=== PATIENT | female | born 1965 | race Caucasian/White ===

== ENCOUNTER → 2020-04-21 | Outpatient (CLI) | payer OTHER ==
[~2020-04-21] VITALS: Ht 170.2 cm; Wt 56.7 kg
== END | disposition home or self-care (01) ==
LOC: ECT 13:08
DX: F31.5 Bipolar disorder, current episode depressed, severe, with psychotic features (principal); I12.9 Hypertensive chronic kidney disease with stage 1 through stage 4 chronic kidney disease, or unspecified chronic kidney disease; N18.30 Chronic kidney disease, stage 3 unspecified; Z79.899 Other long term (current) drug therapy; E03.9 Hypothyroidism, unspecified

== ENCOUNTER 2020-04-25 07:35 | Outpatient (RCR) | payer OTHER ==
[~2020-04-25] VITALS: Ht 170.2 cm; Wt 56.7 kg
[2020-04-25] VITALS (8 sets, daily range): BP systolic 114–129; BP diastolic 58–82
[2020-04-25] MEDS ORDERED: NS 500ML ONE (07:36)
[2020-04-25] MEDS ORDERED: Succinylcholine 20mg/ml 10ml vial ONE (07:36)
[2020-04-25] MEDS ORDERED: Methohexital Sodium Syr 100mg/10ml IVP ONE (07:36)
[2020-04-28] VITALS (7 sets, daily range): BP systolic 103–114; BP diastolic 53–83
[2020-04-28] MEDS ORDERED: Methohexital Sodium Syr 100mg/10ml IVP ONE (06:00)
[2020-04-28] MEDS ORDERED: NS 500ML ONE (06:00)
[2020-04-28] MEDS ORDERED: Succinylcholine 20mg/ml 10ml vial ONE (06:00)
[2020-04-30] VITALS (7 sets, daily range): BP systolic 101–120; BP diastolic 40–82
[2020-04-30] MEDS ORDERED: Methohexital Sodium Syr 100mg/10ml IVP ONE (07:00)
[2020-04-30] MEDS ORDERED: Succinylcholine 20mg/ml 10ml vial ONE (07:00)
[2020-04-30] MEDS ORDERED: NS 500ML ONE (07:00)
[2020-04-30] MEDS ORDERED: Atropine Sulfate 0.4mg/ml inj IVP PRN (14:30)
[2020-05-02] VITALS (7 sets, daily range): BP systolic 97–106; BP diastolic 57–75
[2020-05-02] MEDS ORDERED: NS 500ML ONE (06:00)
[2020-05-02] MEDS ORDERED: Succinylcholine 20mg/ml 10ml vial ONE (06:00)
[2020-05-02] MEDS ORDERED: Methohexital Sodium Syr 100mg/10ml IVP ONE (06:00)
== END 2020-05-03 | disposition home or self-care (01) ==
LOC: ECT 07:35
DX: F31.5 Bipolar disorder, current episode depressed, severe, with psychotic features (principal); I13.10 Hypertensive heart and chronic kidney disease without heart failure, with stage 1 through stage 4 chronic kidney disease, or unspecified chronic kidney disease; N18.30 Chronic kidney disease, stage 3 unspecified; E03.9 Hypothyroidism, unspecified
CPT/HCPCS: 90870; J0330; J7040

== ENCOUNTER 2020-05-05 06:15 | Outpatient (RCR) | payer OTHER ==
[2020-05-05] VITALS (7 sets, daily range): BP systolic 102–120; BP diastolic 63–77
[~2020-05-05] VITALS: Ht 170.2 cm; Wt 56.7 kg
[2020-05-05] MEDS ORDERED: Methohexita Syr 100mg/10ml IVP ONE ×2 (06:16)
[2020-05-05] MEDS ORDERED: NS 500ML ONE ×2 (06:16)
[2020-05-05] MEDS ORDERED: Succinylcholine 20mg/ml 10ml vial ONE ×2 (06:16)
[2020-05-07] VITALS (7 sets, daily range): BP systolic 105–113; BP diastolic 64–76
[2020-05-07] MEDS ORDERED: Methohexita Syr 100mg/10ml IVP ONE (06:00)
[2020-05-07] MEDS ORDERED: Succinylcholine 20mg/ml 10ml vial ONE (06:00)
[2020-05-07] MEDS ORDERED: NS 500ML ONE (06:00)
[2020-05-09] VITALS (7 sets, daily range): BP systolic 111–119; BP diastolic 63–79
[2020-05-09] MEDS ORDERED: Methohexita Syr 100mg/10ml IVP ONE (09:00)
[2020-05-09] MEDS ORDERED: NS 500ML ONE (09:00)
[2020-05-09] MEDS ORDERED: Succinylcholine 20mg/ml 10ml vial ONE (09:00)
[2020-05-12] VITALS (7 sets, daily range): BP systolic 118–131; BP diastolic 72–87
[2020-05-12] MEDS ORDERED: Succinylcholine 20mg/ml 10ml vial ONE (06:00)
[2020-05-12] MEDS ORDERED: NS 500ML ONE (06:00)
[2020-05-12] MEDS ORDERED: Methohexita Syr 100mg/10ml IVP ONE (06:00)
[2020-05-16] VITALS (7 sets, daily range): BP systolic 108–123; BP diastolic 68–90
[2020-05-23] VITALS (7 sets, daily range): BP systolic 105–116; BP diastolic 60–81
[2020-05-23] MEDS ORDERED: NS 500ML ONE (06:00)
[2020-05-23] MEDS ORDERED: Methohexita Syr 100mg/10ml IVP ONE (06:00)
[2020-05-23] MEDS ORDERED: Succinylcholine 20mg/ml 10ml vial ONE (06:00)
== END 2020-06-02 | disposition home or self-care (01) ==
LOC: ECT 06:15
DX: F31.5 Bipolar disorder, current episode depressed, severe, with psychotic features (principal)
CPT/HCPCS: 90870; J0330; J7040

== ENCOUNTER 2020-06-09 05:48 | Outpatient (RCR) | payer OTHER ==
[2020-06-09] VITALS (7 sets, daily range): BP systolic 108–129; BP diastolic 72–87
[~2020-06-09] VITALS: Ht 30.5 cm; Wt 0.5 kg
[2020-06-09] MEDS ORDERED: NS 500ML ONE (05:49)
[2020-06-09] MEDS ORDERED: Succinylcholine 20mg/ml 10ml vial ONE (05:49)
[2020-06-09] MEDS ORDERED: Methohexita Syr 100mg/10ml IVP ONE (05:49)
--- NOTE | 2020-06-09 17:37 | NUR ---
Pt. transferred to ER after Code Blue, See code sheet
== END 2020-07-03 | disposition home or self-care (01) ==
LOC: ECT 05:48
DX: F31.5 Bipolar disorder, current episode depressed, severe, with psychotic features (principal)
CPT/HCPCS: 90870; J0330; J7040

== ENCOUNTER 2020-06-09 11:38 | Emergency (ER) | payer OTHER ==
[~2020-06-09] VITALS: Ht 157.5 cm; Wt 52.2 kg
[2020-06-09 12:00] VITALS: BP 116/81
--- NOTE | 2020-06-09 12:00 | NUR ---
ED Nurse Note: Pt brought in by [facility] staff from ECT for becoming unresponsive after having seizure. Respirations even and unlabored on room air. Vitals stable as documented. A+Ox4, speaking in complete sentences. Pt SR on the monitor. Seizure precautions in place
[2020-06-09 12:30] LABS: BASOPHILS % (AUTO) 0.6 % (0.0-2.0); EOSINOPHILS % (AUTO) 0.1 % (0.0-3.0); HEMATOCRIT 38.7 % (37.0-47.0); HEMOGLOBIN 13.6 G/DL (12.0-16.0); LYMPHOCYTES % (AUTO) 14.2 % (20.0-45.0); MEAN CORPUSCULAR VOLUME 97 FL (80-99); MONOCYTES % (AUTO) 4.3 % (1.0-10.0); NEUTROPHILS % (AUTO) 80.8 % (45.0-75.0); PLATELET COUNT 260 K/UL (150-450); RED BLOOD COUNT 3.98 M/UL (4.20-5.40); RED CELL DISTRIBUTION WIDTH 12.1 % (11.6-14.8); WHITE BLOOD COUNT 9.1 K/UL (4.8-10.8)
--- NOTE | 2020-06-09 12:56 | Emergency Room Report ---
History of Present Illness General Chief Complaint: Seizure Source: Patient Present Illness HPI Disclaimer: Please note that this report is being documented using DRAGON technology. This can lead to erroneous entry secondary to incorrect interpretation by the dictating instrument. HPI: 54-year-old female presents for evaluation after unresponsive episode. 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 She underwent ECT today and was in the recovery window when she had a 2 minute generalized tonic-clonic seizure. Aborted spontaneously. She was noticed to have bladder incontinence. Immediately following termination of the seizure it is reported that the patient had asystole on monitor and no palpable pulse was found. CPR was initiated. No medications were given. At first pulse check the patient had bounding pulses. She slowly awoke though was initially confused and does not remember those events now. I was called to recovery room as a CODE BLUE. Patient was seemingly postictal but had a bounding pulse and stable vital signs. Patient is now awake alert in the emergency department. She reports some tenderness over the chest where compressions occurred but otherwise denies chest pain, palpitations, lightheadedness. Reports mild headache. Denies recent changes in her health such as fever or chills. No prior history of seizures. She was taking Tegretol but that was not for seizures according to patient. Denies any alcohol or drug use. No other complaints from patient at this time. PMH: Depression, catatonia PSH: Reviewed Allergies: NSAIDs Social Hx: Denies alcohol or drug use Allergies: Coded Allergies: NSAIDS (NON-STEROIDAL ANTI-INFLAMMA (Verified Allergy, Unknown, 04/24/20) CKD COVID-19 Screening Contact w/high risk pt: No Experienced COVID-19 symptoms?: No COVID-19 Testing performed LAUNDRY TECHNICIAN: No Review of Systems All Other Systems: negative except mentioned in HPI Physical Exam Vital Signs Date Time Temp Pulse Resp B/P (MAP) Pulse Ox O2 Delivery O2 Flow Rate FiO2 06/09/20 11:56 98.1 90 16 108/75 (86) 100 Room Air General: Awake and alert, no acute distress HEENT: NC/AT. EOMI. Cardiovascular: RRR. S1 and S2 normal. No murmur appreciated Resp: Normal work of breathing. No cough, wheezing or crackles appreciated Abdomen: Abdomen is soft, nondistended. Nontender Skin: Intact. No abrasions, laceration or rash over the exposed skin MSK: Normal tone and bulk. Moving all extremities. No obvious deformity. Neuro: Awake and alert. Mentating appropriately. Procedures Critical Care Time Critical Care Time Total critical care time: Approximately 31 minutes Due to a high probability of clinically significant, life threatening deterioration, the patient required the highest level of preparedness to intervene emergently and I personally spent this critical care time directly and personally managing the patient. This critical care time included obtaining a history, examining the patient, pulse oximetry, ordering and reviewing studies, ordering treatments, evaluating response to treatment and updating management plan as needed, frequent reassessment and discussion with other providers as well as arranging for ultimate disposition. This critical to care time was pe rformed to assess and manage the high probability of life-threatening deterioration that could result in multiorgan failure. This critical care time is separate from the separately billable procedures and treating other patients. Medical Decision Making Diagnostic Impression: Primary Impression: Elevated lactic acid level Additional Impressions: Hypomagnesemia Unresponsive episode Seizure ER Course Is a 54-year-old female presenting for evaluation after an unresponsive episode and presumed seizure. I was called for a CODE BLUE at bedside but the patient was found with a palpable pulse after receiving 1 round of CPR. No medications were given. Differential includes was not limited to seizure, postictal state, cardiac arrest, ACS, arrhythmia, medication side effect, electrolyte abnormality among others. Her EKG on arrival shows normal sinus rhythm without evidence of ischemia. Chest x-ray unremarkable. Troponin is negative. Lactic acid slightly elevated consistent with seizure. Magnesium low and was repleted. Patient receiving IV fluids. Labs show decrease in renal function elevated lactate. Had plan for admission however the patient declined. She states she feels well does not want to stay in the hospital as she [place] far away. She is electing to leave AGAINST MEDICAL ADVICE. She understands the risks of leaving after a possible cardiac arrest however states she will follow-up with her PMD at [facility] soon as possible for reevaluation. Her psychiatrist will prescribe seizure medications. She will return to the emergency department any seizure like activity or any other changes in her health or should she change her mind regarding admission. Laboratory Tests Test 06/09/20 11:45 06/09/20 13:20 06/09/20 14:20 White Blood Count 9.1 K/UL (4.8-10.8) Red Blood Count 3.98 M/UL (4.20-5.40) L Hemoglobin 13.6 G/DL (12.0-16.0) Hematocrit 38.7 % (37.0-47.0) Mean Corpuscular Volume 97 FL (80-99) Mean Corpuscular Hemoglobin 34.3 PG (27.0-31.0) H Mean Corpuscular Hemoglobin Concent 35.2 G/DL (32.0-36.0) Red Cell Distribution Width 12.1 % (11.6-14.8) Platelet Count 260 K/UL (150-450) Mean Platelet Volume 5.4 FL (6.5-10.1) L Neutrophils (%) (Auto) 80.8 % (45.0-75.0) H Lymphocytes (%) (Auto) 14.2 % (20.0-45.0) L Monocytes (%) (Auto) 4.3 % (1.0-10.0) Eosinophils (%) (Auto) 0.1 % (0.0-3.0) Basophils (%) (Auto) 0.6 % (0.0-2.0) Prothrombin Time 11.5 SEC (9.30-11.50) Prothrombin Time INR 1.0 (0.9-1.1) Activated Partial Thromboplast Time 26 SEC (23-33) Sodium Level 144 MMOL/L (136-145) Potassium Level 4.3 MMOL/L (3.5-5.1) Chloride Level 110 MMOL/L (98-107) H Carbon Dioxide Level 24 MMOL/L (21-32) Anion Gap 10 mmol/L (5-15) Blood Urea Nitrogen 19 mg/dL (7-18) H Creatinine 1.7 MG/DL (0.55-1.30) H Estimated Glomerular Filtration Rate 31.5 mL/min (>60) Glucose Level 151 MG/DL (74-106) H Lactic Acid Level 2.40 mmol/L (0.4-2.0) H Pending Calcium Level 9.2 MG/DL (8.5-10.1) Phosphorus Level 5.5 MG/DL (2.5-4.9) H Magnesium Level 1.6 MG/DL (1.8-2.4) L Total Bilirubin 0.4 MG/DL (0.2-1.0) Aspartate Amino Transferase (AST) 42 U/L (15-37) H Alanine Aminotransferase (ALT) 49 U/L (12-78) Alkaline Phosphatase 102 U/L (46-116) Total Creatine Kinase 43 U/L (26-308) Creatine Kinase MB 1.7 NG/ML (0.0-3.6) Creatine Kinase MB Relative Index 3.9 Troponin I 0.021 ng/mL (0.000-0.056) Pro-B-Type Natriuretic Peptide 212 pg/mL (0-125) H Total Protein 7.2 G/DL (6.4-8.2) Albumin 3.8 G/DL (3.4-5.0) Globulin 3.4 g/dL Albumin/Globulin Ratio 1.1 (1.0-2.7) Urine Color Pale yellow Urine Appearance Clear Urine pH 7 (4.5-8.0) Urine Specific [place] 1.005 (1.005-1.035) Urine Protein Negative (NEGATIVE) Urine Glucose (UA) Negative (NEGATIVE) Urine Ketones Negative (NEGATIVE) Urine Blood Negative (NEGATIVE) Urine Nitrite Negative (NEGATIVE) Urine Bilirubin Negative (NEGATIVE) Urine Urobilinogen Normal MG/DL (0.0-1.0) Urine Leukocyte Esterase Negative (NEGATIVE) EKG Diagnostic Results Troponin ordered: Yes When was troponin ordered?: Jun 09, 2020 EKG Time: 12:02 Rate: normal Rhythm: NSR ST Segments: no acute changes Other Impression Sinus rhythm, normal axis, normal intervals, no ST segment changes. Rhythm Strip Diag. Results Rhythm Strip Time: 12:02 EP Interpretation: yes Rate: 80s Rhythm: NSR, no PVC's, no ectopy Chest X-Ray Diagnostic Results Chest X-Ray Diagnostic Results : Chest X-Ray Ordered: Yes # of Views/Limited/Complete: 1 View Indication: Chest Pain EP Interpretation: Yes Interpretation: no consolidation, no effusion, no pneumothorax, no acute cardiopulmonary disease Impression: No acute disease Electronically Signed by: Electronically signed by Dr. Matthew Rivera MD Last Vital Signs Date Time Temp Pulse Resp B/P (MAP) Pulse Ox O2 Delivery O2 Flow Rate FiO2 06/09/20 11:56 98.1 90 16 108/75 (86) 100 Room Air Disposition: AGAINST MEDICAL ADVICE Condition: Stable Referrals: [facility] (PCP) Matthew Rivera MD Jun 09, 2020 12:55
[2020-06-09 12:59] LABS: CALCIUM 9.2 MG/DL (8.5-10.1); CREATININE 1.7 MG/DL (0.55-1.30); POTASSIUM 4.3 MMOL/L (3.5-5.1)
[2020-06-09 13:00] LABS: PHOSPHORUS 5.5 MG/DL (2.5-4.9)
--- NOTE | 2020-06-09 13:12 | Diagnostic Imaging Report ---
Indication: Chest pain Technique: XRAY Chest 1v Comparison: None Findings: Heart size and mediastinal contours are within normal limits for AP technique. There is no focal airspace consolidation, pneumothorax or pleural effusion. Moderate to severe scoliosis of the lower thoracic/upper lumbar spine is noted. Osseous structures demonstrate no acute abnormality. Impression: No radiographic evidence of acute cardiopulmonary disease. Scoliosis
[2020-06-09 13:13] LABS: ALBUMIN 3.8 G/DL (3.4-5.0); ALBUMIN/GLOBULIN RATIO 1.1 (1.0-2.7); BILIRUBIN,TOTAL 0.4 MG/DL (0.2-1.0); CKMB 1.7 NG/ML (0.0-3.6)
[2020-06-09 14:00] VITALS: BP 129/85
--- NOTE | 2020-06-09 14:29 | NUR ---
ED Nurse Note: reflex lactic sent to lab
[2020-06-09 14:33] LABS: APPEARANCE,URINE CLEAR; BILIRUBIN, URINE NEGATIVE (NEGATIVE); COLOR,URINE PALE YELLOW; GLUCOSE, URINE (UA) NEGATIVE (NEGATIVE); KETONES,URINE NEGATIVE (NEGATIVE); LEUKOCYTE ESTERASE ,URINE NEGATIVE (NEGATIVE); NITRITE,URINE NEGATIVE (NEGATIVE); PH,URINE 7 (4.5-8.0); PROTEIN,URINE NEGATIVE (NEGATIVE); UROBILINOGEN,URINE NORMAL MG/DL (0.0-1.0)
[2020-06-09 16:00] VITALS: BP 117/74
--- NOTE | 2020-06-09 16:00 | NUR ---
AMA: SEE AMA FORM. Pt lives in [facility] and does not want to stay in [place] over night. Both RN and ED MD discussed risks of leaving and benefits of staying with patient and still patient declines to stay. Pt is A+Ox4, speaking in complete sentencse. Pt verbalized understanding. Respirations even and unlabored on room air. Pt is asked to contact per PCP and to come back to ER if any more seizure activity. Pt reports that her psychiatrist is going to prescribe her seizure medication that she was previously taking before. Pt signed AMA form and was provided a copy. Pt ambulated with steady gait out of ED. Pt's mother took patient home. IV and ID band removed.
== END 2020-06-09 16:00 | disposition left against medical advice (07) ==
LOC: EMR 12:42 → CANBEDREQ 16:00 → EMR 16:00
DX: G40.909 Epilepsy, unspecified, not intractable, without status epilepticus (principal); R79.89 Other specified abnormal findings of blood chemistry; E83.42 Hypomagnesemia; Z88.6 Allergy status to analgesic agent; F32.9 Major depressive disorder, single episode, unspecified; R51.9 Headache, unspecified; M41.9 Scoliosis, unspecified
CPT/HCPCS: 36415; 71045; 80053; 81003; 82550; 82553; 83605; 83735; 83880; 84100; 84484; 85025; 85610; 85730; 92950; 93005; 96361; 96365; 96366; 99291; J7030